=== PATIENT | female | born 1995 | race Hispanic/Latino ===

== ENCOUNTER 2018-07-03 10:12 | Inpatient (IN) | payer OTHER ==
[~2018-07-03 10:12] MED LIST: ACETAMINOPHEN 500 MG TAB PO PRN; DIPHENHYDRAMINE 50 MG/ML VIAL IV PRN; METOCLOPRAMIDE 10 MG/2mL INJ IV PRN; ONDANSETRON 4 MG/2 ML VIAL IV PRN; Ringers Lactate 1,000 ML IV PRN; Ringers Lactate 1,000 ML IV SCH
--- OUTSIDE RECORDS SUMMARY | 2018-07-03 10:24 | XMS REPORT ---
:1995 Author Organization [employer] Care Team Providers Name Role Phone Tennille Felix Provider Role Unavailable Allergies No Known Allergies Problems Problem Type Condition Code Onset Dates Condition Status Assessment Normal first in third Z34.03 Active trimester Problem Normal first in third Z34.03 Active trimester Medications No Known Medications Results No Known Results Summary Purpose [employer] Submission
--- OUTSIDE RECORDS SUMMARY | 2018-07-03 10:24 | XMS REPORT ---
:1995 Author Organization [employer] Care Team Providers Name Role Phone Tennille Felix Provider Role Unavailable Allergies No Known Allergies Problems Problem Type Condition Code Onset Dates Condition Status Assessment Normal first in second Z34.02 Active trimester Problem Normal first in second Z34.02 Active trimester Medications No Known Medications Results No Known Results Summary Purpose [employer] Submission
[2018-07-03 11:28] LABS: RPR Titer ND
[2018-07-03 11:33] LABS: Absolute Lymphocytes (CBC) 1.8 K/uL (0.7-4.9); Absolute Monocytes 0.8 K/uL (0.1-1.3); Absolute Neutrophil 7.4 K/uL (1.8-8.0); Basophils % 0.3 % (0-1.3); Eosinophils % 1.1 % (0-4.4); Hematocrit 35.1 % (36.0-45.0); Lymphocytes % 17.6 % (15.3-44.8); MCH 27.1 pg (27.0-35.0); MCV 81.4 fL (80-100); Monocytes % 7.5 % (3.3-12.3); RBC Red Blood Cell Count 4.32 M/uL (3.86-4.86)
--- NOTE | 2018-07-03 11:42 | P.HP ---
Certification for Inpatient Patient admitted to: Inpatient With expected LOS: >2 Midnights Patient will require the following post-hospital care: None Practitioner: I am a practitioner with admitting privileges, knowledge of patient current condition, hospital course, and medical plan of care. Services: Services provided to patient in accordance with Admission requirements found in Title 42 Section 412.3 of the Code of Federal Regulations Patient History Date of Service: 07/03/18 Reason for admission: Elective induction of labor History of Present Illness: 22-year-old G 1 at 40 weeks and 3 days by LMP presents for elective induction of labor. has been complicated by mild anemia and she is adequate care. GBS negative. ETIENNE: 06/30/2018 Allergies No Known Allergies Allergy (Unverified 07/03/18 09:25) Home medications list reviewed: Yes - Past Medical/Surgical History Has patient received pneumonia vaccine in the past: No Diabetic: No Past Medical History: Patient denies medical history Past Surgical History: Patient denies surgical history - Family History Mother -: Cancer Father -: Diabetes - Social History Smoking Status: Former smoker Alcohol use: No CD- Drugs: No Caffeine use: Yes Place of Residence: Home Review of Systems 10-point ROS is otherwise unremarkable Physical Examination - Vital Signs Temperature: 97.5 F Blood Pressure: 122/69 Pulse: 85 Respirations: 14 - Physical Exam General: Alert, In no apparent distress, Oriented x3 Respiratory: Other (Normal effort) Cardiovascular: Normal pulses Musculoskeletal: No swelling, No tenderness Integumentary: No rashes, No breakdown Neurological: Normal speech, Normal strength at 5/5 x4 extr, Cranial nerves 3- 12 intact - Studies Laboratory Data (last 24 hrs) 07/03/18 10:35: WBC 10.0, Hgb 11.7 L, Hct 35.1 L, Plt Count 233 Female Exam - Female Pelvic Cervix: Dilation (1), Effacement (50), station (-2) Uterus: Non-tender, Soft, Gravid - Obstetrics heart rate tracing: Category 1 Contractions: Frequency (Rare) Amniotic membrane: Intact Assessment and Plan - Problems (Diagnosis) (1) Elective induction of labor planned Current Visit: Yes Status: Acute Plan: Admit to Labor and delivery for cervical ripening. Routine labs ordered. Will start with Cytotec PV for 3 doses; start Pitocin when favorable. May be up to ambulate during ripening. Patient desires epidural eventually pain control. - Advance Directives Does patient have a Living Will: No Does patient have a Durable POA for Healthcare: No
[2018-07-03 11:43] LABS: Urine Appearance CLEAR; Urine Bilirubin NEGATIVE (NEG); Urine Blood NEGATIVE (NEG); Urine Color YELLOW; Urine Glucose NEGATIVE (NEG); Urine Protein NEGATIVE (NEG); Urine Specific Gravity <=1.005 (1.005-1.030); Urine Urobilinogen 0.2 mg/dL (0.2-1.0); Urine pH 6.5 (5.0-7.0)
[2018-07-03 11:47] LABS: Urine Microscopic Reflex ORDER UMIC
[2018-07-03 11:49] LABS: BUN Blood Urea Nitrogen 6 mg/dL (7-18); Bicarbonate 22 mmol/L (21-32); Glucose Level 95 mg/dL (74-106); Potassium 4.2 mmol/L (3.5-5.1); Sodium Level 140 mmol/L (136-145)
[2018-07-03 12:04] LABS: Urine Bacteria 20-50 /HPF (<20); Urine RBC <5 /HPF (NONE SEEN)
[2018-07-03 12:05] LABS: Urine Culture Reflex Order REFLEXED
[2018-07-03] MEDS ORDERED: miSOPROStol 100 MCG TAB VAG SCH (13:00)
[2018-07-03] MEDS ORDERED: miSOPROStol 100 MCG TAB ONE (23:33)
[2018-07-04] MEDS ORDERED: ROPIVACAINE HCL 20 ML ONE (06:20)
[2018-07-04] MEDS ORDERED: ROPIVACAINE HCL 100 ML IV ONE (06:20)
[2018-07-04] MEDS ORDERED: OXYTOCIN/LR 20 UNIT/1,000 ML BAG IV ONE (06:27)
[2018-07-04] MEDS ORDERED: FENTANYL CITR 100 MCG/2 ML ONE (07:20)
--- NOTE | 2018-07-04 09:16 | P.PN ---
Subjective Date of Service: 07/04/18 Chief Complaint: Elective induction of labor Subjective: No new changes (Pain is well controlled with epidural), Doing well Review of Systems 10-point ROS is otherwise unremarkable Physical Examination - Vital Signs Temperature: 97.5 F Blood Pressure: 122/69 Pulse: 85 Respirations: 14 - Physical Exam General: Alert, In no apparent distress, Oriented x3 Respiratory: Other (Normal effort) Cardiovascular: Normal pulses Musculoskeletal: Swelling (B/L LE edema 1+) Integumentary: No rashes, No breakdown Other Physical/Emotional Findings: Cervix: 5-6/50/-1, clear fluid noted. FHR: cat II due to intermittent decels with spontaneous resolution. Moderate variability. [place]: irregular - Studies Laboratory Data (last 24 hrs) 07/03/18 10:35: Sodium 140, Potassium 4.2, BUN 6 L, Creatinine 0.40 L, Glucose 95 07/03/18 10:35: WBC 10.0, Hgb 11.7 L, Hct 35.1 L, Plt Count 233 Assessment And Plan - Current Problems (Diagnosis) (1) Elective induction of labor planned Current Visit: Yes Status: Acute Plan: Ongoing. Pt now has an epidural with good result (2) SROM (spontaneous rupture of membranes) Current Visit: Yes Status: Acute Plan: Occurred this morning per RN. Clear fluid noted. Intermittent variables noted. Monitor contraction pattern and tracing. Start pitocin for augmentation if no change in 2 hours and reassuring tracing
[2018-07-04] MEDS ORDERED: OXYTOCIN/LR 20 UNIT/1,000 ML BAG IV SCH (10:00)
[2018-07-04 10:46] VITALS: BMI 4921.0
[2018-07-04] MEDS ORDERED: LIDOCAINE 2% INJ, 20 mL 0 ML ONE (13:13)
[2018-07-04] MEDS ORDERED: METHYLERGONOVINE 0.2MG/ML AMP IM ONE (13:14)
[2018-07-04] MEDS ORDERED: CARBOPROST TROME 250 MCG/ML IM ONE (13:14)
[2018-07-04] MEDS ORDERED: DIPHENHYDRAMINE 25 MG TAB/CAP PO PRN (17:25)
[2018-07-04] MEDS ORDERED: CODEINE 30MG/APAP 300MG TAB PO PRN (17:25)
[2018-07-04] MEDS ORDERED: METHYLERGONOVINE 0.2MG/ML AMP IM PRN (17:25)
[2018-07-04] MEDS ORDERED: BISACODYL 10 MG RECTAL SUPP RECT PRN (17:25)
[2018-07-04] MEDS ORDERED: DOCUSATE NA/SENNA CONC 1 TAB PO PRN (17:25)
[2018-07-04] MEDS ORDERED: METOCLOPRAMIDE 5 MG TAB PO PRN (17:25)
[2018-07-04] MEDS ORDERED: ONDANSETRON 4 MG (ODT) TAB PO PRN (17:25)
[2018-07-04] MEDS ORDERED: IBUPROFEN 200 MG TAB PO PRN (17:25)
--- NOTE | 2018-07-04 17:25 | P.OP ---
Preoperative diagnosis: Full term mcfadden IUP, Elective induction of labor Postoperative diagnosis: Same with mild shoulder dystocia Primary procedure: Anesthesia: Epidural Estimated blood loss: 400 cc Specimen: None Findings: See operative report Operative Technique: FINDINGS: Female fetus in OA position, APGARS of 9/9 at 1 and 5 minutes respectively, weight of 7 lb 10 oz, clear amniotic fluid. Normal appearing placenta. Second degree midline laceration and left labial tear. Stage I: 12h 16 min; Stage II: 46 min. HISTORY OF PRESENT ILLNESS: The patient is a 22-year-old female who is a G1P at 40w3d who was admitted for an elective induction of labor. She had adequate care and was complicated by mild anemia. Labs were normal and she had routine care. On admission, she was noted to be 1/50/-3 cm. She denied complaints and noted positive movement. PROCEDURE DETAILS: The patient was admitted to Labor and Delivery for induction , which was started with cervical ripening with cytotec PV. After 3 doses, patient had SROM, with clear fluid noted. Contractions and pain increased and she requested an epidural for pain control. It was placed with good result. Labor progressed normally. She had a spontaneous vaginal delivery of a live born female with clear fluid from an OA position over an intact perineum at 16:46. After controlled delivery of the head, a mild shoulder dystocia was encountered. Magui maneuver was done and suprapubic pressure was applied, delivering the anterior shoulder. It lasted approximately 20 seconds. Next, the posterior shoulder and body followed without difficulty. Bulb suctioning was done. The was placed on the patient's abdomen for skin to skin contact. The cord was clamped and cut. Findings as stated above. There was no depression. Infant was crying, vigorous, and moving all extremities. Spontaneous delivery of an intact placenta with a three-vessel cord was noted at 16:55. On examination, there was 2nd degree midline laceration and a left labial tear. The midline laceration was repaired in the usual fashion using 2- 0 vicryl. The left labial tear was repaired with 3-0 chromic in a continuous, running unlocked fashion. On vaginal exam, there were no noted cervical or vaginal sidewall lacerations. Patient tolerated procedure well and there were no complications. Estimated blood loss was ~400 cc. Mother and are in recovery doing well at this time. Complications: None Fluids & blood products: mIVF Transferred to: Recovery Room Condition: Good
[2018-07-04] MEDS ORDERED: NA CHLORIDE 0.9% 1,000 ML IV SCH (18:00)
[2018-07-04 22:48] LABS: RPR (Rapid Plasma Reagin) NON-REACT (NON-REACT)
[2018-07-05 05:14] LABS: MCH 26.8 pg (27.0-35.0); MCV 81.1 fL (80-100); MPV 8.9 fL (7.6-11.3); RBC Red Blood Cell Count 3.45 M/uL (3.86-4.86)
[2018-07-05] MEDS ORDERED: PENICILLIN G POT 0 MU/0 ML BAG IV ONE ×2 (06:08→06:17)
[2018-07-05] MEDS ORDERED: Ringers Lactate 1,000 ML IV ONE (07:38)
--- NOTE | 2018-07-05 13:01 | P.DS ---
Admission Date: 07/03/18 Discharge Date: 07/05/18 Disposition: ROUTINE DISCHARGE Comment: Rounding with d/c summary Discharge Condition: GOOD Reason for Admission: Elective induction of labor - Problems (1) Elective induction of labor planned Onset Date: 07/05/18 Current Visit: Yes Status: Resolved (2) SROM (spontaneous rupture of membranes) Onset Date: 07/05/18 Current Visit: Yes Status: Resolved Brief History of Present Illness: 22-year-old G 1 at 40 weeks and 3 days by LMP presents for elective induction of labor. has been complicated by mild anemia and she is adequate care. GBS negative. ETIENNE: 06/30/2018 Hospital Course: Pt was admitted for IOL which was started with cytotec. She had SROM and labor progressed normally. She had a vaginal delivery of a healthy baby girl. She is and doing well pp. [place] is described as light, she is ambulating, having spontaneous voids, and pain is well controlled. She is stable for d/c home on PPD #1 Vital Signs/Physical Exam: Temp Pulse Resp BP Pulse Ox 97.8 F 88 16 104/60 07/05/18 12:00 07/05/18 12:00 07/05/18 12:00 07/05/18 12:00 General: Alert, In no apparent distress, Oriented x3 Respiratory: Other (Normal effort) Cardiovascular: Normal pulses Gastrointestinal: Soft and benign, No tenderness, No guarding, Other (Uterus firm and 1 cm above umbilicus) Musculoskeletal: No erythema, No tenderness, Swelling (1+ B/L LE edema) Integumentary: No rashes, No breakdown Neurological: Normal speech, Normal strength at 5/5 x4 extr Other Physical/Emotional Findings: Cervix: 5-6/50/-1, clear fluid noted. FHR: cat II due to intermittent decels with spontaneous resolution. Moderate variability. [place]: irregular Laboratory Data at Discharge: WBC 15.7 K/uL (4.3-10.9) H D 07/05/18 04:17 Hgb 9.2 g/dL (12.0-15.0) L D 07/05/18 04:17 Hct 28.0 % (36.0-45.0) L D 07/05/18 04:17 Plt Count 171 K/uL (152-406) D 07/05/18 04:17 Sodium 140 mmol/L (136-145) 07/03/18 10:35 Potassium 4.2 mmol/L (3.5-5.1) 07/03/18 10:35 BUN 6 mg/dL (7-18) L 07/03/18 10:35 Creatinine 0.40 mg/dL (0.55-1.3) L 07/03/18 10:35 Glucose 95 mg/dL (74-106) 07/03/18 10:35 Home Medications: Codeine/APAP [Tylenol #3*] 1 tab PO Q4H PRN #15 tab 07/05/18 Ibuprofen 800 mg PO Q8H PRN #30 tablet 07/05/18 New Medications: Codeine/APAP [Tylenol #3*] 1 tab PO Q4H PRN #15 tab PRN Reason: Pain Scale 8-10 (Severe) Ibuprofen 800 mg PO Q8H PRN #30 tablet PRN Reason: Abdominal Cramps Patient Discharge Instructions: Complete pelvic rest for 6 weeks. Notify doctor of heavy bleeding, uncontrolled pain, fever/chills, or other signs of infection. See doctor in 6 weeks for exam Diet: Regular Activity: Ad wayne Followup: Tennille Felix MD [ACTIVE - CAN ADMIT] - (Follow up care with Dr. Felix in 6 weeks for post care. [phone])
[2018-07-05 15:56] VITALS: BP 101/68; TEMP 97.3
[2018-07-05] MEDS ORDERED: Tdap (Diph,Pertuss(Acell),Tet Vac) 0.5 ML SYR IMVAC ONE (17:00)
[2018-07-06 03:19] LABS: HBsAG Nonreactive (Nonreactive)
== END 2018-07-05 18:40 | disposition home or self-care (01) | DRG 775 ==
LOC: 2ND-WC 10:12
PROVIDERS: ADMIT Obstetrics & Gynecology; ATTEND Obstetrics & Gynecology
PROC: 3E0P7VZ Introduction of Hormone into Female Reproductive, Via Natural or Artificial Opening (ICD-10-PCS; 2018-07-03)
PROC: 10E0XZZ Delivery of Products of Conception, External Approach (ICD-10-PCS; principal; 2018-07-04)
PROC: 0KQM0ZZ Repair Perineum Muscle, Open Approach (ICD-10-PCS; 2018-07-04)
DX: O66.0 Obstructed labor due to shoulder dystocia (principal); O70.1 Second degree perineal laceration during delivery; O99.02 Anemia complicating childbirth; D64.9 Anemia, unspecified; Z3A.40 40 weeks gestation of pregnancy; Z37.0 Single live birth; Z87.891 Personal history of nicotine dependence
CPT/HCPCS: 36415; 80048; 81003; 81015; 83986; 85025; 85027; 86592; 86850; 86900; 86901; 87086; 87088; 87340; 90715; J2210; J2590; J2795; J3010; J7030

== ENCOUNTER 2018-07-24 14:57 | Inpatient (IN) | payer OTHER ==
[2018-07-24] MEDS ORDERED: Ringers Lactate 1,000 ML IV PRN (15:12)
--- OUTSIDE RECORDS SUMMARY | 2018-07-24 15:17 | XMS REPORT ---
:1995 Author Organization [employer] Care Team Providers Name Role Phone Tennille Felix Provider Role Unavailable Allergies, Adverse Reactions, Alerts Substance Reaction Event Type N.K.D.A. Info Not Available Non Drug Allergy Problems Problem Type Condition Code Onset Dates Condition Status Problem Normal first in third Z34.03 Active trimester Medications No Known Medications Results No Known Results Summary Purpose eClinicalWorks Submission
[2018-07-24] MEDS ORDERED: Ringers Lactate 1,000 ML IV SCH (16:00)
[2018-07-24 16:04] LABS: Absolute Lymphocytes (CBC) 1.1 K/uL (0.7-4.9); Absolute Monocytes 0.5 K/uL (0.1-1.3); Absolute Neutrophil 8.3 K/uL (1.8-8.0); Basophils % 0.4 % (0-1.3); Eosinophils % 0.1 % (0-4.4); Hematocrit 39.7 % (36.0-45.0); Lymphocytes % 10.8 % (15.3-44.8); MCH 26.1 pg (27.0-35.0); MCV 78.9 fL (80-100); Monocytes % 5.3 % (3.3-12.3); RBC Red Blood Cell Count 5.03 M/uL (3.86-4.86)
[2018-07-24 16:19] LABS: Potassium 3.8 mmol/L (3.5-5.1)
[2018-07-24] MEDS ORDERED: CLINDAMYCIN IV ONE (17:00)
[2018-07-24] MEDS ORDERED: CEFOTAXIME SODIUM 2 GM VIAL IV SCH (17:00)
[2018-07-24] MEDS ORDERED: NA CHLORIDE 0.9% IV ONE (17:00)
--- NOTE | 2018-07-24 17:20 | P.HP ---
Certification for Inpatient Patient admitted to: Inpatient With expected LOS: >2 Midnights Patient will require the following post-hospital care: None Practitioner: I am a practitioner with admitting privileges, knowledge of patient current condition, hospital course, and medical plan of care. Services: Services provided to patient in accordance with Admission requirements found in Title 42 Section 412.3 of the Code of Federal Regulations Patient History Date of Service: 07/24/18 Reason for admission: Mastitis, B/L in patient History of Present Illness: 22 y.o. who is 20 days s/p and presented to clinic today with c/o malaise, fever/chills x1 week, and breast tenderness. She also reports decreased mild supply and pain with . Diagnosis of mastitis made in office and orders entered for direct admit for IV antibiotics. Allergies No Known Allergies Allergy (Verified 07/03/18 14:01) Home Medications: Codeine/APAP [Tylenol #3*] 1 tab PO Q4H PRN #15 tab 07/05/18 Ibuprofen 800 mg PO Q8H PRN #30 tablet 07/05/18 - Past Medical/Surgical History Diabetic: No -: Past Surgical History: Patient denies surgical history - Family History Mother -: Cancer Father -: Diabetes - Social History Alcohol use: No CD- Drugs: No Caffeine use: Yes Review of Systems General: Fever, Chills, Malaise, Other (Breast tenderness) Physical Examination - Physical Exam General: Alert, Oriented x3, Mild distress, Other (Appears unwell) HEENT: Atraumatic, Normocephalic Respiratory: Clear to auscultation bilaterally, Normal air movement Cardiovascular: Normal S1 S2, Other (Tachycardia) Capillary refill: <2 Seconds Gastrointestinal: Soft and benign, No tenderness, Guarding Musculoskeletal: No swelling, No tenderness Integumentary: No rashes, No breakdown Neurological: Normal speech, Normal strength at 5/5 x4 extr - Studies Laboratory Data (last 24 hrs) 07/24/18 15:39: Sodium 142, Potassium 3.8, BUN 7, Creatinine 0.90, Glucose 106 07/24/18 15:39: WBC 10.0, Hgb 13.1, Hct 39.7, Plt Count 262 Assessment and Plan - Problems (Diagnosis) (1) Mastitis during puerperium Current Visit: Yes Status: Acute Plan: Due to recurrence of fever/chills and duration of symptoms >1 week, admit for IV antibiotics and aggressive IVF hydration. Blood cultures ordered x2 with CBC and basic panel. Rocephin 2 g q 12 hours and clindamycin 10 mg/kg loading followed by 5 mg/kg q 8 hours. Follow I/Os, regular diet. PRN tylenol. Continue pumping q 2-3 hours. Lanolin use encouraged. - Advance Directives Does patient have a Living Will: No Does patient have a Durable POA for Healthcare: No
[2018-07-24] MEDS: CEFTRIAXONE/SWI 2gm 2 GM/20 ML SYR IVP SCH (18:00)
[2018-07-24 18:27] VITALS: BMI 28.3
[2018-07-24 19:12] LABS: Urine Appearance CLEAR; Urine Bilirubin NEGATIVE (NEG); Urine Blood NEGATIVE (NEG); Urine Color YELLOW; Urine Glucose NEGATIVE (NEG); Urine Protein NEGATIVE (NEG); Urine Specific Gravity <=1.005 (1.005-1.030)
[2018-07-24 19:13] LABS: Urine Microscopic Reflex NO UMIC
[2018-07-24] MEDS: ACETAMINOPHEN 500 MG TAB PO PRN (19:15)
[2018-07-25] MEDS: NA CHLORIDE 0.9% IV SCH ×3 (01:30→17:00)
[2018-07-25] MEDS: CLINDAMYCIN IV SCH ×3 (01:30→17:00)
[2018-07-25] MEDS: ACETAMINOPHEN 500 MG TAB PO PRN (04:00)
[2018-07-25] MEDS ORDERED: METHYLERGONOVINE 0.2MG/ML AMP IM ONE (06:11)
[2018-07-25] MEDS ORDERED: CEFTRIAXONE/SWI 1gm 2 GM/20 ML SYR ONE (06:20)
[2018-07-25 06:53] LABS: Absolute Lymphocytes (CBC) 1.1 K/uL (0.7-4.9); Absolute Monocytes 0.7 K/uL (0.1-1.3); Absolute Neutrophil 5.6 K/uL (1.8-8.0); Basophils % 0.3 % (0-1.3); Eosinophils % 1.3 % (0-4.4); Lymphocytes % 14.6 % (15.3-44.8); MCH 26.2 pg (27.0-35.0); MCV 78.8 fL (80-100); MPV 8.7 fL (7.6-11.3); Monocytes % 9.1 % (3.3-12.3); RBC Red Blood Cell Count 4.19 M/uL (3.86-4.86)
[2018-07-25 07:11] LABS: BUN Blood Urea Nitrogen 5 mg/dL (7-18); Bicarbonate 25 mmol/L (21-32); Glucose Level 96 mg/dL (74-106); Potassium 3.8 mmol/L (3.5-5.1); Sodium Level 146 mmol/L (136-145)
--- NOTE | 2018-07-25 09:13 | P.PN ---
Subjective Date of Service: 07/25/18 Chief Complaint: Mastitis, B/L in patient Subjective: Tolerating diet (Patient reports feeling much better as compared to yesterday. She denies breast pain and feels well when she is up and walking around. She no longer feels as weak or fatigued. She also states her milk production has improved markedly now producing at least 30 oz with each pumping session. She is having normal spontaneous voids), Ambulating, Improving Review of Systems 10-point ROS is otherwise unremarkable Physical Examination - Vital Signs Temperature: 98.4 F Blood Pressure: 99/53 Pulse: 73 Respirations: 16 - Physical Exam General: Alert, In no apparent distress, Oriented x3 HEENT: Atraumatic, Normocephalic Respiratory: Clear to auscultation bilaterally, Normal air movement Cardiovascular: Regular rate/rhythm, Normal S1 S2 Gastrointestinal: Soft and benign, No tenderness, No guarding Musculoskeletal: No swelling, No erythema, No tenderness Integumentary: No rashes, No breakdown Neurological: Normal speech, Normal strength at 5/5 x4 extr Other Physical/Emotional Findings: Breasts: erythema resolved B/L, non-tender, no signs of abscess, spontaneous milk let down - Studies Laboratory Data (last 24 hrs) 07/25/18 06:26: Sodium 146 H, Potassium 3.8, BUN 5 L, Creatinine 0.70, Glucose 96 07/25/18 06:26: WBC 7.5 D, Hgb 11.0 L, Hct 33.0 L D, Plt Count 191 D 07/24/18 15:39: Sodium 142, Potassium 3.8, BUN 7, Creatinine 0.90, Glucose 106 07/24/18 15:39: WBC 10.0, Hgb 13.1, Hct 39.7, Plt Count 262 Assessment And Plan - Current Problems (Diagnosis) (1) Mastitis during puerperium Current Visit: Yes Status: Acute Plan: Patient is significantly clinically improved since admission for IV antibiotics for treatment of mastitis. Tachycardia has resolved and and she no longer has breast tenderness. Discussed plan to continue IV antibiotics for 24-48 hr after admission. Continue IV fluid hydration and repeat labs in a.m. Likely Dc home in the next 24 to 48 hr to continue 10-14 days of Abx when discharged. Discharge Plan: Home Plan to discharge in: 48 Hours
[2018-07-25] MEDS ORDERED: IBUPROFEN 400 MG TAB PO PRN (09:32)
[2018-07-25] MEDS: NS KCL 20MEQ 20 MEQ/1,000 ML BAG IV SCH ×2 (10:40→19:15)
[2018-07-25] MEDS: CEFTRIAXONE/SWI 2gm 2 GM/20 ML SYR IVP SCH (18:00)
[2018-07-26] MEDS: NA CHLORIDE 0.9% IV SCH ×2 (00:55→09:00)
[2018-07-26] MEDS: CLINDAMYCIN IV SCH ×2 (00:55→09:00)
[2018-07-26] MEDS ORDERED: NA CHLORIDE 0.9% 1,000 ML IV SCH (04:00)
[2018-07-26 05:43] LABS: Absolute Lymphocytes (CBC) 2.1 K/uL (0.7-4.9); Absolute Monocytes 0.5 K/uL (0.1-1.3); Absolute Neutrophil 2.5 K/uL (1.8-8.0); Basophils % 0.3 % (0-1.3); Eosinophils % 7.8 % (0-4.4); Hematocrit 32.3 % (36.0-45.0); MCH 26.6 pg (27.0-35.0); MCV 80.3 fL (80-100); MPV 9.1 fL (7.6-11.3); Monocytes % 8.9 % (3.3-12.3); RBC Red Blood Cell Count 4.03 M/uL (3.86-4.86)
[2018-07-26] MEDS ORDERED: CEFTRIAXONE 1000 MG/VIAL ONE (05:44)
[2018-07-26] MEDS ORDERED: NS 0.9% VIAL 10 ML ONE (05:46)
[2018-07-26 05:50] LABS: BUN Blood Urea Nitrogen 5 mg/dL (7-18); Bicarbonate 26 mmol/L (21-32); Glucose Level 86 mg/dL (74-106); Potassium 3.9 mmol/L (3.5-5.1); Sodium Level 143 mmol/L (136-145)
[2018-07-26] MEDS: CEFTRIAXONE/SWI 2gm 2 GM/20 ML SYR IVP SCH (06:00)
--- NOTE | 2018-07-26 07:27 | P.DS ---
Admission Date: 07/24/18 Discharge Date: 08/02/18 Disposition: ROUTINE DISCHARGE Comment: Rounding with discharge summary Discharge Condition: GOOD Reason for Admission: Mastitis, B/L in patient - Problems (1) Mastitis during puerperium Onset Date: 07/25/18 Status: Acute Brief History of Present Illness: 22 y.o. who is 20 days s/p and presented to clinic today with c/o malaise, fever/chills x1 week, and breast tenderness. She also reports decreased mild supply and pain with . Diagnosis of mastitis made in office and orders entered for direct admit for IV antibiotics. Hospital Course: Pt was admitted for IV antibiotics for mastitis. She was given treatment for 2 days and is clinically improved. She feels better, is tolerating intake and breast pain and swelling is significantly improved. She is stable for and ready to go home today to continue antibiotics for a total of 10 day treatment. Vital Signs/Physical Exam: Temp Pulse Resp BP Pulse Ox 97.5 F 54 16 100/52 L 07/26/18 04:00 07/26/18 04:00 07/26/18 04:00 07/26/18 04:00 General: Alert, In no apparent distress, Oriented x3 Respiratory: Clear to auscultation bilaterally Cardiovascular: Regular rate/rhythm, Normal S1 S2 Gastrointestinal: Soft and benign Integumentary: No rashes, No breakdown Neurological: Normal speech, Normal strength at 5/5 x4 extr Other Physical/Emotional Findings: Breasts: erythema resolved B/L, non-tender, no signs of abscess, spontaneous milk let down Laboratory Data at Discharge: WBC 5.5 K/uL (4.3-10.9) D 07/26/18 04:52 Hgb 10.7 g/dL (12.0-15.0) L 07/26/18 04:52 Hct 32.3 % (36.0-45.0) L 07/26/18 04:52 Plt Count 215 K/uL (152-406) 07/26/18 04:52 Sodium 143 mmol/L (136-145) 07/26/18 04:52 Potassium 3.9 mmol/L (3.5-5.1) 07/26/18 04:52 BUN 5 mg/dL (7-18) L 07/26/18 04:52 Creatinine 0.50 mg/dL (0.55-1.3) L 07/26/18 04:52 Glucose 86 mg/dL (74-106) 07/26/18 04:52 Home Medications: Dicloxacillin Sodium 500 mg PO Q6H 10 Days #40 capsule 07/26/18 New Medications: Dicloxacillin Sodium 500 mg PO Q6H 10 Days #40 capsule Patient Discharge Instructions: Complete all antibiotics as prescribed. Continue and/or pumping. Notify physician immediately of worsening symptoms, fever, or chills. See doctor in 2 weeks. Diet: Regular Activity: Ad wayne Followup: Tennille Felix MD [ACTIVE - CAN ADMIT] -
[2018-07-26 12:48] VITALS: BP 100/54; TEMP 96.1
== END 2018-07-26 13:00 | disposition home or self-care (01) | DRG 776 ==
LOC: 2ND-WC 15:15
PROVIDERS: ADMIT Obstetrics & Gynecology; ATTEND Obstetrics & Gynecology
DX: O91.23 Nonpurulent mastitis associated with lactation (principal)
CPT/HCPCS: 36415; 80048; 81003; 83605; 85025; 87040; J0696; J2210; J7030